=== PATIENT | female | born 1995 | race Caucasian/White ===

== ENCOUNTER 2024-08-03 12:42 | Emergency (ER) | payer BC ==
[2024-08-03] MEDS ORDERED: ALBUTEROL SO4 2.5/IPRATROPIUM 0.5 INH SOL 3 ML VIAL.NEB. NEB ONE (13:37)
[2024-08-03 13:39] VITALS: BP 115/75; PULSE 88; RESP 17; TEMP 98.4; BMI 24.8
[2024-08-03] MEDS: ALBUTEROL SO4 2.5/IPRATROPIUM 0.5 INH SOL 3 ML VIAL.NEB. NEB ONE (13:45)
== END 2024-08-03 16:27 | disposition home or self-care (01) ==
LOC: JERFT 12:42
DX: O99.891 Other specified diseases and conditions complicating pregnancy (principal); R06.02 Shortness of breath; R05.9 Cough, unspecified; R09.82 Postnasal drip; R07.89 Other chest pain; Z3A.19 19 weeks gestation of pregnancy
CPT/HCPCS: 71046-TC-FY; 93005; 93010; 93970-TC; 99285-25

== ENCOUNTER 2024-09-13 14:45 | Inpatient (IN) | payer BC ==
[2024-09-13] MEDS ORDERED: ACETAMINOPHEN INJECTION 100 ML ONE (17:38)
[2024-09-13] MEDS ORDERED: LIDOCAINE 5% TOPICAL PATCH ONE (17:38)
[2024-09-13] MEDS: ACETAMINOPHEN 1000 MG/100 ML BAG IVPB ONE (17:44)
[2024-09-13] MEDS: LIDOCAINE 4% PATCH TP ONE (17:44)
[2024-09-13 17:52] LABS: PH,URINE 6.5 (5.0-8.0); URINE APPEARANCE CLEAR; URINE BILIRUBIN NEGATIVE (NEGATIVE); URINE COLOR YELLOW; URINE GLUCOSE (UA) NEGATIVE (NEGATIVE); URINE KETONE NEGATIVE (NEGATIVE); URINE LEUK ESTERASE NEGATIVE (NEGATIVE); URINE NITRITE NEGATIVE (NEGATIVE); URINE PROTEIN NEGATIVE (NEGATIVE); URINE UROBILINOGEN 0.2 mg/dL (0.2-1.0)
[2024-09-13 18:07] LABS: HEMATOCRIT 32.7 % (32.4-45.2); HEMOGLOBIN 11.4 GM/dL (10.7-15.3); MCH 31.1 pg (25.7-33.7); MCHC 34.9 g/dl (32.0-36.0); MEAN CELL VOLUME 89.2 fl (80-96); MEAN PLT VOLUME 10.2 fl (7.5-11.1); PLATELET COUNT 125 10^3/uL (134-434); RBC 3.66 M/mm3 (3.60-5.2); RDW 14.5 % (11.6-15.6); WHITE BLOOD COUNT 10.9 K/mm3 (4.0-10.0)
[2024-09-13 18:21] LABS: INR 0.96 (0.83-1.09); PROTHROMBIN TIME (PATIENT) 11.1 SEC (9.7-13.0)
[2024-09-13 18:24] LABS: ACTIVATED PTT 25.8 SECONDS (25.2-36.5)
[2024-09-13 18:31] LABS: POTASSIUM 3.7 mmol/L (3.5-5.1)
[2024-09-13 18:33] LABS: ALBUMIN 2.8 g/dl (3.4-5.0); BLOOD UREA NITROGEN 4.4 mg/dL (7-18); CALCIUM 8.3 mg/dL (8.5-10.1)
[2024-09-13 18:36] LABS: CREATININE 0.4 mg/dL (0.55-1.3)
[2024-09-13 18:38] LABS: BILIRUBIN,TOTAL 0.3 mg/dL (0.2-1); TOT PROT 6.2 g/dl (6.4-8.2)
[2024-09-13 18:55] LABS: ANISOCYTOSIS 3+; MACROCYTOSIS 0
[2024-09-13] MEDS: LIDOCAINE PATCH REMOVAL MC SCH (20:06)
[2024-09-13] MEDS ORDERED: ALBUTEROL SO4 HFA INHALER IH PRN (21:59)
[2024-09-13] MEDS ORDERED: ONDANSETRON 4 MG/2 ML VIAL IVPUSH PRN (22:00)
[2024-09-13] MEDS: ENOXAPARIN NA (PORCINE) 80 MG/0.8 ML DISP.SYRIN SQ SCH (22:02)
[2024-09-13] MEDS: methylPREDNISolone NA SUCC 40 MG/1 ML VIAL IVPUSH SCH (22:03)
[2024-09-13] MEDS: ALBUTEROL SO4 2.5/IPRATROPIUM 0.5 INH SOL 3 ML VIAL.NEB. NEB ONE (22:03)
[2024-09-13] MEDS ORDERED: ENOXAPARIN NA (PORCINE) 80 MG/0.8 ML DISP.SYRIN SQ ONE (22:04)
[2024-09-14] MEDS: ACETAMINOPHEN 1000 MG/100 ML BAG IVPB PRN (00:04)
[2024-09-14] MEDS: LIDOCAINE 4% PATCH TP ONE (00:08)
[2024-09-14] MEDS ORDERED: ACETAMINOPHEN INJECTION 100 ML ONE (00:10)
[2024-09-14] MEDS ORDERED: LIDOCAINE 4% PATCH TP ONE (00:17)
[2024-09-14 02:44] VITALS: BMI 26.5
[2024-09-14] MEDS: LIDOCAINE PATCH REMOVAL MC ONE (05:32)
[2024-09-14 08:28] LABS: MCH 31.6 pg (25.7-33.7); MCHC 34.3 g/dl (32.0-36.0); MEAN PLT VOLUME 10.3 fl (7.5-11.1); PLATELET COUNT 130 10^3/uL (134-434); RBC 3.48 M/mm3 (3.60-5.2); RDW 14.2 % (11.6-15.6)
[2024-09-14 08:44] LABS: POTASSIUM 3.5 mmol/L (3.5-5.1)
[2024-09-14 09:03] LABS: ALBUMIN 2.7 g/dl (3.4-5.0); BLOOD UREA NITROGEN 9.5 mg/dL (7-18); CALCIUM 8.4 mg/dL (8.5-10.1); MAGNESIUM 1.7 mg/dL (1.8-2.4)
[2024-09-14 09:07] LABS: PHOSPHOROUS 3.2 mg/dL (2.5-4.9)
[2024-09-14 09:08] LABS: CREATININE 0.5 mg/dL (0.55-1.3)
[2024-09-14 09:09] LABS: BILIRUBIN,TOTAL 0.2 mg/dL (0.2-1); TOT PROT 5.8 g/dl (6.4-8.2)
[2024-09-14 09:46] VITALS: RESP 18
[2024-09-14] MEDS ORDERED: LIDOCAINE PATCH REMOVAL MC ONE (12:00)
[2024-09-14 14:30] VITALS: BP 108/68; PULSE 86; TEMP 98.8
[2024-09-14] MEDS: LIDOCAINE 5% TOPICAL PATCH TP ONE (17:21)
[2024-09-14] MEDS: MAGNESIUM 1GM/D5W - 1 GM/100 ML IVPB IVPB ONE (17:21)
[2024-09-14] MEDS ORDERED: LIDOCAINE PATCH REMOVAL MC SCH (22:00)
== END 2024-09-14 18:54 | disposition short-term general hospital (02) | DRG 832 ==
LOC: JER 14:45 → UNDOADMOB 20:05 → JERBED 20:05 → OBSVTOIN 21:59 → J4S 09-14 02:13
PROVIDERS: ADMIT Internal Medicine; ATTEND Nurse Practitioner
DX: O99.891 Other specified diseases and conditions complicating pregnancy (principal); N13.30 Unspecified hydronephrosis; I87.1 Compression of vein; M94.0 Chondrocostal junction syndrome [Tietze]; Z3A.26 26 weeks gestation of pregnancy
CPT/HCPCS: 36415; 76604; 76705-TC; 76801-TC; 80053; 81003; 83690; 83735; 84100; 84702; 85025; 85027; 85379; 85610; 85730; 86850; 86900; 86901; 87086; 87635; 93005; 93010; 93308; 93970-TC; 99285-25; G0378; J0131

== ENCOUNTER 2024-12-10 12:17 | Inpatient (IN) | payer BC ==
[2024-12-10 13:23] LABS: BASO % 0.5 % (0-2.0); EOS % 1.1 % (0-4.5); HEMOGLOBIN 12.5 GM/dL (10.7-15.3); LYMPH % 33.7 % (8-40); MCH 31.3 pg (25.7-33.7); MCHC 34.6 g/dl (32.0-36.0); MEAN CELL VOLUME 90.3 fl (80-96); MONO % 7.9 % (3.8-10.2); NEUT % 56.8 % (42.8-82.8); PLATELET COUNT 109 10^3/uL (134-434); RBC 3.99 M/mm3 (3.60-5.2); RDW 14.1 % (11.6-15.6); WHITE BLOOD COUNT 8.1 K/mm3 (4.0-10.0)
[2024-12-10 13:34] LABS: INR 0.95 (0.83-1.09); PROTHROMBIN TIME (PATIENT) 10.7 SEC (9.7-13.0)
[2024-12-10 13:37] LABS: ACTIVATED PTT 24.5 SECONDS (25.2-36.5)
[2024-12-10 13:44] LABS: POTASSIUM 4.1 mmol/L (3.5-5.1)
[2024-12-10 13:48] LABS: CALCIUM 9.3 mg/dL (8.5-10.1)
[2024-12-10 13:52] LABS: CREATININE 0.7 mg/dL (0.55-1.3)
[2024-12-10 14:39] VITALS: BMI 27.6
[2024-12-10] MEDS: DINOPROSTONE 10 MG VAGINAL SUPPOSITORY VG ONE (16:56)
[2024-12-10] MEDS: ELECTROLYTE-148 SOLN 1,000 ML IV SCH (17:10)
[2024-12-10] MEDS ORDERED: ACETAMINOPHEN INJECTION 100 ML ONE (17:47)
[2024-12-10] MEDS: ACETAMINOPHEN 1000 MG/100 ML BAG IVPB ONE (17:49)
[2024-12-10] MEDS ORDERED: FENTANYL/BUPIVACAINE/NS/PF - PCEA - 50 ML DISP.SYRIN EP ONE (21:37)
[2024-12-10] MEDS: FENTANYL/BUPIVACAINE/NS/PF - PCEA - 50 ML DISP.SYRIN EP SCH (22:30)
[2024-12-10] MEDS ORDERED: NALOXONE HCL 0.4 MG/ML VIAL IVPUSH PRN (22:55)
[2024-12-11] MEDS: AMPICILLIN - 2 GM in SODIUM CHLORIDE 100 ML IVPB ONE (00:30)
[2024-12-11] MEDS ORDERED: AMPICILLIN SODIUM 2 GM VIAL ONE (00:33)
[2024-12-11] MEDS ORDERED: SODIUM CHLORIDE 100 ML IVPB ONE ×2 (00:33→04:31)
[2024-12-11] MEDS ORDERED: FENTANYL/BUPIVACAINE/NS/PF - PCEA - 50 ML DISP.SYRIN EP ONE ×4 (03:54→17:01)
[2024-12-11] MEDS ORDERED: AMPICILLIN SODIUM 1 GM VIAL ONE ×4 (04:31→16:55)
[2024-12-11] MEDS: AMPICILLIN - 1 GM in SODIUM CHLORIDE 100 ML IVPB SCH (04:35)
[2024-12-11] MEDS: OXYTOCIN 30 UNITS in 0.9% NS 30 UNIT/500 ML INFUS.BAG IVPB SCH (05:00)
[2024-12-11] MEDS ORDERED: OXYTOCIN 30 UNITS in 0.9% NS 30 UNIT/500 ML INFUS.BAG IVPB ONE ×2 (05:01→18:47)
[2024-12-11] MEDS ORDERED: LIDO 2%/EPI 1:200000 PRESRVFRE (20 ML SDVIAL) ONE ×2 (10:32→18:47)
[2024-12-11] MEDS ORDERED: FENTANYL CITRATE/PF 50 MCG/ML VIAL ONE ×3 (10:32→18:50)
[2024-12-11] MEDS ORDERED: BUPIVACAINE HCL/PF 0.25% (2.5MG/ML) 10 ML VIAL ONE (10:32)
[2024-12-11] MEDS: ALPRAZolam 0.25 MG TABLET PO ONE (11:41)
[2024-12-11] MEDS: ACETAMINOPHEN 1000 MG/100 ML BAG IVPB ONE (18:42)
[2024-12-11] MEDS ORDERED: ceFAZolin SODIUM 1 GM VIAL ONE (18:49)
[2024-12-11] MEDS ORDERED: ONDANSETRON 4 MG/2 ML VIAL ONE (18:49)
[2024-12-11] MEDS ORDERED: DEXAMETHASONE SOD PHOSPHATE 4 MG/1 ML VIAL ONE (18:49)
[2024-12-11] MEDS ORDERED: morphine SULFATE/PF 1 MG/2 ML (2cc Syringe - QUVA) ONE (18:50)
[2024-12-11] MEDS ORDERED: MIDAZOLAM HCL 2 MG/2 ML SINGLE DOSE VIAL ONE (19:45)
[2024-12-11] MEDS ORDERED: KETOROLAC TROMETHAMINE 30 MG/1 ML VIAL ONE (19:51)
[2024-12-11] MEDS ORDERED: OXYTOCIN 10 UNITS/ML VIAL ONE (19:55)
[2024-12-11 20:03] LABS: CORD BASE EXCESS -3.2 mmol/L (0-2); CORD HCO3 21.8 mmHg (20-29); CORD PCO2 39.3 mmHg (30-78); CORD pH 7.362 (7.14-7.44)
[2024-12-11 20:07] LABS: CORD BASE EXCESS -3.3 mmol/L (0-2); CORD HCO3 23.7 mmHg (20-29); CORD PCO2 49.7 mmHg (30-78); CORD pH 7.297 (7.14-7.44)
[2024-12-11] MEDS ORDERED: BENZOCAINE 28 GM HEMORRHOIDAL OINTMENT TP PRN (20:24)
[2024-12-11] MEDS ORDERED: METHYLERGONOVINE MALEATE 0.2 MG/1 ML AMP IM PRN (20:24)
[2024-12-11] MEDS ORDERED: BENZOCAINE 20% 57 GM BOTTLE TP PRN (20:24)
[2024-12-11] MEDS ORDERED: WITCH HAZEL 50% (TUCKS) 40 PAD/JAR PAD TP PRN (20:24)
[2024-12-11] MEDS: OXYTOCIN 20 UNITS in 0.9% NS 20 UNIT/1,000 ML INFUS.BAG IV SCH (20:30)
[2024-12-11] MEDS ORDERED: ONDANSETRON 4 MG/2 ML VIAL IVPUSH PRN (20:31)
[2024-12-11] MEDS ORDERED: OXYTOCIN 20 UNITS in 0.9% NS 20 UNIT/1,000 ML INFUS.BAG IV ONE (20:44)
[2024-12-11] MEDS ORDERED: IBUPROFEN 800 MG/8 ML IJ IVPB ONE (21:29)
[2024-12-11] MEDS: IBUPROFEN 800 MG/8 ML IJ IVPB PRN (21:42)
[2024-12-12] MEDS: morphine SULFATE/PF 1 MG/2 ML (2cc Syringe - QUVA) EP ONE (00:23)
[2024-12-12] MEDS: ACETAMINOPHEN 1000 MG/100 ML BAG IVPB PRN (00:34)
[2024-12-12] MEDS ORDERED: ACETAMINOPHEN 1000 MG/100 ML BAG IVPB PRN (00:38)
[2024-12-12] MEDS ORDERED: ALPRAZolam 0.25 MG TABLET PO PRN (00:38)
[2024-12-12] MEDS: AMPICILLIN - 1 GM in SODIUM CHLORIDE 100 ML IVPB SCH (01:52)
[2024-12-12 07:24] LABS: BASO % 0.5 % (0-2.0); EOS % 0.3 % (0-4.5); HEMATOCRIT 30.5 % (32.4-45.2); HEMOGLOBIN 10.2 GM/dL (10.7-15.3); LYMPH % 24.5 % (8-40); MCH 30.8 pg (25.7-33.7); MCHC 33.4 g/dl (32.0-36.0); MEAN CELL VOLUME 92.1 fl (80-96); MEAN PLT VOLUME 10.6 fl (7.5-11.1); MONO % 6.6 % (3.8-10.2); NEUT % 68.1 % (42.8-82.8); PLATELET COUNT 89 10^3/uL (134-434); RBC 3.31 M/mm3 (3.60-5.2); RDW 14.2 % (11.6-15.6); WHITE BLOOD COUNT 13.4 K/mm3 (4.0-10.0)
[2024-12-12] MEDS: ENOXAPARIN NA (PORCINE) 40 MG/0.4 ML DISP.SYRIN SQ SCH (10:09)
[2024-12-12] MEDS: ACETAMINOPHEN 325 MG TABLET (FP) PO PRN (11:04)
[2024-12-12] MEDS: PRENATAL VITAMINS W/ FOLIC ACID TABLET (FP) PO SCH (11:04)
[2024-12-12] MEDS: SIMETHICONE 80 MG TAB.CHEW (FP) PO PRN (11:04)
[2024-12-12] MEDS ORDERED: TRIAMCINOLONE ACET 0.1% CREAM 15 GM TUBE TP SCH (15:15)
[2024-12-12] MEDS: TRIAMCINOLONE ACET 0.1% CREAM 15 GM TUBE TP SCH (18:10)
[2024-12-12 18:36] LABS: BASO % 0.8 % (0-2.0); EOS % 0.8 % (0-4.5); HEMATOCRIT 31.2 % (32.4-45.2); HEMOGLOBIN 10.5 GM/dL (10.7-15.3); LYMPH % 27.4 % (8-40); MCH 31.1 pg (25.7-33.7); MCHC 33.8 g/dl (32.0-36.0); MONO % 6.1 % (3.8-10.2); NEUT % 64.9 % (42.8-82.8); PLATELET COUNT 97 10^3/uL (134-434); RBC 3.39 M/mm3 (3.60-5.2); RDW 14.2 % (11.6-15.6); WHITE BLOOD COUNT 11.2 K/mm3 (4.0-10.0)
[2024-12-12] MEDS ORDERED: BISACODYL 10 MG SUPP.RECT RC PRN (20:24)
[2024-12-12] MEDS: IBUPROFEN 600 MG TABLET (FP) PO PRN (20:50)
[2024-12-13 07:46] LABS: BASO % 0.5 % (0-2.0); EOS % 1.4 % (0-4.5); HEMATOCRIT 30.2 % (32.4-45.2); HEMOGLOBIN 10.4 GM/dL (10.7-15.3); LYMPH % 21.3 % (8-40); MCH 31.5 pg (25.7-33.7); MCHC 34.3 g/dl (32.0-36.0); MEAN CELL VOLUME 91.9 fl (80-96); MEAN PLT VOLUME 11.2 fl (7.5-11.1); MONO % 5.7 % (3.8-10.2); NEUT % 71.1 % (42.8-82.8); PLATELET COUNT 85 10^3/uL (134-434); RBC 3.29 M/mm3 (3.60-5.2); RDW 14.6 % (11.6-15.6); WHITE BLOOD COUNT 11.1 K/mm3 (4.0-10.0)
[2024-12-13] MEDS: ONDANSETRON 4 MG TABLET PO ONE (12:15)
[2024-12-13 13:03] LABS: POTASSIUM 3.8 mmol/L (3.5-5.1)
[2024-12-13 13:05] LABS: ALBUMIN 2.4 g/dl (3.4-5.0); BLOOD UREA NITROGEN 10.6 mg/dL (7-18); CALCIUM 8.6 mg/dL (8.5-10.1)
[2024-12-13 13:07] LABS: INR 0.94 (0.83-1.09); PROTHROMBIN TIME (PATIENT) 10.8 SEC (9.7-13.0)
[2024-12-13 13:08] LABS: CREATININE 0.5 mg/dL (0.55-1.3)
[2024-12-13 13:09] LABS: ACTIVATED PTT 26.5 SECONDS (25.2-36.5)
[2024-12-13 13:10] LABS: BILIRUBIN,TOTAL 0.4 mg/dL (0.2-1); TOT PROT 5.2 g/dl (6.4-8.2)
[2024-12-13 22:11] VITALS: RESP 18
[2024-12-14 07:08] LABS: BASO % 0.5 % (0-2.0); EOS % 3.1 % (0-4.5); HEMATOCRIT 30.2 % (32.4-45.2); HEMOGLOBIN 10.3 GM/dL (10.7-15.3); LYMPH % 30.9 % (8-40); MCH 31.4 pg (25.7-33.7); MCHC 34.2 g/dl (32.0-36.0); MEAN CELL VOLUME 91.8 fl (80-96); MEAN PLT VOLUME 10.6 fl (7.5-11.1); MONO % 5.1 % (3.8-10.2); NEUT % 60.4 % (42.8-82.8); PLATELET COUNT 102 10^3/uL (134-434); RBC 3.29 M/mm3 (3.60-5.2); WHITE BLOOD COUNT 9.9 K/mm3 (4.0-10.0)
[2024-12-14] MEDS: SENNOSIDES/DOCUSATE COMBO (SENNA PLUS) TABLET (UD) PO PRN (22:30)
[2024-12-15 11:15] VITALS: BP 119/61; PULSE 80; TEMP 98.2
== END 2024-12-15 12:55 | disposition home or self-care (01) | DRG 787 ==
LOC: JLDR 12:17 → J3W 12-11 22:56
PROVIDERS: ADMIT Obstetrics & Gynecology; ATTEND Obstetrics & Gynecology
PROC: 3E0P7VZ Introduction of Hormone into Female Reproductive, Via Natural or Artificial Opening (ICD-10-PCS; 2024-12-10)
PROC: 10D00Z1 Extraction of Products of Conception, Low, Open Approach (ICD-10-PCS; principal; 2024-12-11)
DX: O61.0 Failed medical induction of labor (principal); I77.4 Celiac artery compression syndrome; I87.1 Compression of vein; O41.03X0 Oligohydramnios, third trimester, not applicable or unspecified; O99.113 Other diseases of the blood and blood-forming organs and certain disorders involving the immune mechanism complicating pregnancy, third trimester; O62.1 Secondary uterine inertia; O99.824 Streptococcus B carrier state complicating childbirth; O26.893 Other specified pregnancy related conditions, third trimester; O42.92 Full-term premature rupture of membranes, unspecified as to length of time between rupture and onset of labor; Z3A.38 38 weeks gestation of pregnancy; Z37.0 Single live birth
CPT/HCPCS: 36415; 36600; 80048; 80053; 82150; 82803; 83690; 85025; 85384; 85610; 85730; 86780; 86850; 86900; 86901; 88307-TC; J0131